=== PATIENT | male | born 1985 | race Caucasian/White ===

== ENCOUNTER 2019-05-16 02:24 | Emergency (ER) | payer BC ==
[~2019-05-16] VITALS: Ht 172.7 cm; Wt 63.6 kg
[2019-05-16 02:35] VITALS: BP 118/79; Ht 172.7 cm; Wt 63.6 kg
[2019-05-16] MEDS ORDERED: ERYTHROMYCIN OPT1 GM LEFT EYE (03:49)
== END 2019-05-16 04:20 | disposition home or self-care (01) ==
LOC: D.ER 02:24
DX: S05.02XA Injury of conjunctiva and corneal abrasion without foreign body, left eye, initial encounter (principal); X58.XXXA Exposure to other specified factors, initial encounter; F17.210 Nicotine dependence, cigarettes, uncomplicated

== ENCOUNTER 2020-02-17 12:25 | Emergency (ER) | payer OTHER ==
[~2020-02-17] VITALS: Ht 172.7 cm; Wt 59.1 kg
[~2020-02-17 12:25] MED LIST: ERYTHROMYCIN OPT1 GM LEFT EYE
[2020-02-17 12:36] VITALS: Ht 172.7 cm; Wt 59.1 kg
[2020-02-17] MEDS ORDERED: [UNRECOGNIZED DRUG - REMARK] (12:38)
[2020-02-17] MEDS ORDERED: WELLBUTRIN XL150 M1 PO (12:39)
[2020-02-17 16:42] VITALS: BP 127/73
[2020-02-17] MEDS ORDERED: KEFLEX500 MG PO (18:35)
== END 2020-02-17 16:43 | disposition home or self-care (01) ==
LOC: D.ER 12:25
DX: S62.635B Displaced fracture of distal phalanx of left ring finger, initial encounter for open fracture (principal); W23.0XXA Caught, crushed, jammed, or pinched between moving objects, initial encounter; Y93.9 Activity, unspecified; Y92.9 Unspecified place or not applicable